=== PATIENT | female | born 1965 | race Caucasian/White ===

== ENCOUNTER 2021-08-07 19:27 | Emergency (ER) | payer MEDICAID ==
[~2021-08-07] VITALS: Ht 162.6 cm; Wt 62.3 kg
[2021-08-07 19:32] VITALS: BP 116/75
[2021-08-07] MEDS ORDERED: buprenorphine/naloxone 8MG-2MG SUBlingual film SL STA (19:59)
== END 2021-08-07 20:40 | disposition home or self-care (01) ==
LOC: ER 19:29
DX: Z00.00 Encounter for general adult medical examination without abnormal findings (principal); Z88.0 Allergy status to penicillin; Z88.1 Allergy status to other antibiotic agents; Z88.8 Allergy status to other drugs, medicaments and biological substances
CPT/HCPCS: 99282

== ENCOUNTER 2021-08-24 13:45 | Emergency (ER) | payer MEDICAID ==
[~2021-08-24] VITALS: Ht 162.6 cm; Wt 64.5 kg
[2021-08-24 15:12] VITALS: BP 100/66
[2021-08-24] MEDS ORDERED: buprenorphine/naloxone 8MG-2MG SUBlingual film SL STA (15:35)
== END 2021-08-24 16:09 | disposition home or self-care (01) ==
LOC: ER 13:47
DX: Z76.0 Encounter for issue of repeat prescription (principal); Z72.89 Other problems related to lifestyle; Z88.0 Allergy status to penicillin; Z88.1 Allergy status to other antibiotic agents; Z88.8 Allergy status to other drugs, medicaments and biological substances
CPT/HCPCS: 99283

== ENCOUNTER 2021-08-27 19:37 | Emergency (ER) | payer MEDICAID ==
[~2021-08-27] VITALS: Ht 160 cm; Wt 64.1 kg
[2021-08-27] MEDS ORDERED: predniSONE 20 mg tablet PO ONE (19:45)
[2021-08-27] MEDS ORDERED: diphenhydrAMINE 25mg capsule PO ONE (19:45)
[2021-08-27 20:06] VITALS: BP 140/84
--- NOTE | 2021-08-27 20:13 | NUR ---
PATIENT STATED SHE RECENTLY "HAD A TB TEST AND IS NOT TRYING TO KILL HERSELF BY TAKING PREDNISONE". MONIQUE CANTU MADE AWARE.
== END 2021-08-27 20:22 | disposition home or self-care (01) ==
LOC: ER 19:38
DX: Z00.00 Encounter for general adult medical examination without abnormal findings (principal); R11.0 Nausea; F41.9 Anxiety disorder, unspecified; Z88.0 Allergy status to penicillin; Z88.1 Allergy status to other antibiotic agents
CPT/HCPCS: 99283; Q0163

== ENCOUNTER 2022-09-07 08:49 | Emergency (ER) | payer MEDICAID ==
[~2022-09-07] VITALS: Ht 165.1 cm; Wt 62.7 kg
[2022-09-07 09:38] LABS: CLARITY,URINE CLEAR (Clear); COLOR,URINE YELLOW (Yellow); GLUCOSE, URINE NEGATIVE (Neg); KETONES,URINE NEGATIVE (Neg); LEUKOCYTE ESTERASE ,URINE NEGATIVE (Neg); NITRITES, URINE NEGATIVE (Neg); OCCULT BLOOD,URINE NEGATIVE (Neg); PH,URINE 5.5 (4.8-8.0); PROTEIN,URINE TRACE mg/dl (Neg)
[2022-09-07 09:39] LABS: URINE HCG NEGATIVE (NEG)
[2022-09-07 09:40] LABS: BASOPHILS % (AUTO) 0.3 % (0-1); EOSINOPHILS % (AUTO) 0.2 % (0-6); HEMATOCRIT 43.2 % (35.0-45.0); HEMOGLOBIN 14.6 g/dl (12.0-16.0); LYMPHOCYTES # (AUTO) 0.7 X10'3 (1.1-4.8); LYMPHOCYTES % (AUTO) 4.9 % (21-51); MEAN CORPUSCULAR HEMOGLOBIN 30.4 PG (27.0-31.0); MEAN CORPUSCULAR HGB CONC 33.8 g/dL (33.0-36.5); MEAN PLATELET VOLUME 7.4 FL (7.4-10.4); MONOCYTES # (AUTO) 1.2 X10'3 (0-0.9); MONOCYTES % (AUTO) 8.1 % (2-12); NEUTROPHILS # (AUTO) 13.3 X10'3 (1.8-7.7); NEUTROPHILS % (AUTO) 86.5 % (42-75); PLATELET COUNT 322 X10'3 (140-440); RED BLOOD COUNT 4.79 X10'6 (4.20-5.60); RED CELL DISTRIBUTION WIDTH 13.7 % (11.5-14.5); WHITE BLOOD COUNT 15.3 X10'3 (4.5-11.0)
[2022-09-07 09:42] LABS: UA COLLECTION TYPE CLN CATCH MIDSTREAM
[2022-09-07 09:53] LABS: BACTERIA,URINE 2+ /HPF (Neg); MUCUS STRANDS FEW /LPF (Neg); RBC,URINE 0-2 /HPF (0-2); SQUAMOUS EPITHELIAL CELL,UR MANY /LPF (FEW)
[2022-09-07 09:54] LABS: CELLULAR CAST 0-4 /LPF (NEGATIVE)
[2022-09-07 10:09] LABS: ALANINE AMINOTRANSFERASE 26 U/L (12-78); ALBUMIN 4.3 G/DL (3.4-5.0); ALBUMIN/GLOBULIN RATIO 0.9 (1.1-1.5); ALKALINE PHOSPHATASE 153 IU/L (46-116); ANION GAP 13 (8-16); ASPARTATE AMINO TRANSFERASE 30 U/L (10-37); BILIRUBIN,TOTAL 0.9 MG/DL (0.1-1.0); BLOOD UREA NITROGEN 48 MG/DL (7-18); BUN/CREATININE RATIO 23.4 (10.0-20.0); CALCIUM 9.3 MG/DL (8.5-10.1); CHLORIDE 89 MMOL/L (99-107); CREATININE 2.05 MG/DL (0.40-0.90); GLUCOSE 131 MG/DL (70-104); LIPASE 106 U/L (73-393); SODIUM 129 MMOL/L (135-145); TOTAL CARBON DIOXIDE 26.6 MMOL/L (24-32); TOTAL PROTEIN 9.3 G/DL (6.4-8.2); eGFR 25 ML/MIN
[2022-09-07] MEDS ORDERED: cephalexin 500mg capsule PO ONE (10:10)
[2022-09-07] MEDS ORDERED: sulfamethoxazole/trimethoprim DS (800/160mg) tablet PO ONE (10:10)
[2022-09-07] MEDS ORDERED: ondansetron 4mg rapidly disintigrating tab PO ONE (10:10)
[2022-09-07] MEDS ORDERED: potassium Cl 40MEQ/1/2NS 520ml 520 ML IV ONE (10:30)
[2022-09-07] MEDS ORDERED: normal saline 1000ML IV soln IVB ONE (10:30)
[2022-09-07 11:07] VITALS: BP 143/97
[2022-09-07] MEDS ORDERED: CEPH500C2 PO (11:35)
[2022-09-07] MEDS ORDERED: POTA-192 PO (11:35)
[2022-09-07] MEDS ORDERED: DOXY-1 PO (11:35)
[2022-09-07] MEDS ORDERED: ONDA4TAB12 PO (11:37)
== END 2022-09-07 13:58 | disposition home or self-care (01) ==
LOC: ER 08:50
DX: L03.012 Cellulitis of left finger (principal); E86.0 Dehydration; R11.2 Nausea with vomiting, unspecified
CPT/HCPCS: 36415; 80053; 81001; 81025; 83690; 85025; 96365; 96366; 99284; J3480; J7030